=== PATIENT | female | born 1985 | race African-American/Black ===

== ENCOUNTER 2019-10-21 04:52 | Inpatient (IN) | payer MEDICARE, MEDICAID ==
[~2019-10-21] VITALS: Ht 175.3 cm; Wt 87.1 kg
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
[2019-10-21 05:22] LABS: BASOPHILS % (AUTO) 0.5 % (0.0-2.0); EOSINOPHILS % (AUTO) 4.2 % (0.0-6.0); HEMATOCRIT 37 % (33-45); HEMOGLOBIN 12.6 g/dL (11.5-14.8); LYMPHOCYTES # (AUTO) 1.8 /CMM (0.8-4.8); LYMPHOCYTES % (AUTO) 24.3 % (20.0-44.0); MEAN CORPUSCULAR HGB CONC 34 g/dl (31.0-36.0); MEAN CORPUSCULAR VOLUME 96 fL (82-100); MONOCYTES # (AUTO) 0.4 /CMM (0.1-1.30); MONOCYTES % (AUTO) 5.9 % (2.0-12.0); NEUTROPHILS # (AUTO) 4.7 /CMM (1.8-8.9); NEUTROPHILS % (AUTO) 65.1 % (43.0-81.0); PLATELET COUNT (AUTO) 430 /CMM (150-450); RED BLOOD CELL COUNT(AUTO) 3.92 MIL/uL (4.0-5.2); WHITE BLOOD COUNT (AUTO) 7.2 K/uL (4.3-11.0)
[2019-10-21] MEDS ORDERED: OLANZAPINE 10 MG VIAL IM ONE ×2 (05:26→05:30)
[2019-10-21 05:29] LABS: CALCIUM, SERUM 8.8 mg/dL (8.5-10.1); CARBON DIOXIDE 25 mmol/L (21-32); CHLORIDE 106 mmol/L (98-107); CREATININE 0.8 mg/dL (0.6-1.3); GLUCOSE 94 mg/dL (74-106); POTASSIUM 3.5 mmol/L (3.5-5.1); SODIUM SERUM 141 mmol/L (136-145); UREA NITROGEN, BLOOD 10 mg/dL (7-18)
[2019-10-21 05:35] LABS: ALANINE AMINOTRANSFERASE 15 U/L (12-78); ALCOHOL, BLOOD < 3 mg/dL (0-0); ALKALINE PHOSPHATASE 101 U/L (46-116); ASPARTATE AMINOTRANSFERASE 21 U/L (15-37); BILIRUBIN,DIRECT 0.1 mg/dL (0.0-0.2); BILIRUBIN,TOTAL 0.2 mg/dL (0.2-1.0); TOTAL PROTEIN, SERUM 7.3 g/dL (6.4-8.2)
[2019-10-21 05:39] LABS: ACETAMINOPHEN 0 ug/ml (10-30); SALICYLATE 1.5 mg/dL (2.8-20.0)
--- NOTE | 2019-10-21 07:33 | NUR ---
REPORT GIVEN TO SHAZIA OLIVARES FOR JOEL.
--- NOTE | 2019-10-21 08:15 | NUR ---
PATIENT RESTING, GAVE A URINE SAMPLE, SENT TO LAB.
[2019-10-21 08:25] LABS: APPEARANCE,URINE Clear (CLEAR); BILIRUBIN,URINE Negative (NEGATIVE); BLOOD, URINE Large Ery/uL (NEGATIVE); COLOR,URINE Yellow (YELLOW); KETONES,URINE Negative (NEGATIVE); LEUKOCYTE ESTERASE ,URINE Negative (NEGATIVE); NITRITE, URINE Negative (NEGATIVE); PROTEIN,URINE 100 mg/dl (NEGATIVE); UGLUCOSE Negative (NEGATIVE); UROBILINOGEN,URINE 0.2 EU/dL (0.2)
[2019-10-21 08:27] LABS: BACTERIA,URINE Few /HPF (None Seen); SQUAMOUS EPITHELIAL CELL,UR Few /HPF (None Seen)
--- NOTE | 2019-10-21 08:47 | NUR ---
CALLED AND LEFT A MESSAGE FOR [facility] (CRISIS TEAM) REGARDING PSYCH EVAL.
--- NOTE | 2019-10-21 09:08 | NUR ---
naz dave called. eta 1 hour.
--- NOTE | 2019-10-21 09:58 | NUR ---
Patient is resting comfortably in bed with eyes closed. Easily aroused. VSS
--- NOTE | 2019-10-21 12:00 | NUR ---
[facility] [employer]ILY [employer] AT BEDSIDE FOR EVAL.
--- NOTE | 2019-10-21 12:30 | NUR ---
ordered food tray, patient tolerated meal.
--- NOTE | 2019-10-21 14:18 | NUR ---
[facility] FAXED PAPER WORK FROM 4 DIFFERENT FACILITIES, WAITING FOR INTAKE CALL BACK.
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
--- NOTE | 2019-10-21 17:09 | NUR ---
ordered food tray, pt refused food.
--- NOTE | 2019-10-21 17:16 | NUR ---
SPOKE WITH PETRA FROM [facility]TA[facility], PT WILL HAVE A BED AVAILABLE TOMORROW MORNING AT [facility].
--- NOTE | 2019-10-21 18:00 | NUR ---
Patient is resting comfortably in bed with eyes closed. Easily aroused. VSS
[2019-10-21] MEDS ORDERED: clonazePAM 1 MG TABLET ONE (19:21)
--- NOTE | 2019-10-21 19:24 | NUR ---
endorsed to ronal dave
[2019-10-21] MEDS ORDERED: clonazePAM 1 MG TABLET PO ONE (19:30)
[2019-10-21] MEDS ORDERED: ARIPIPRAZOLE 5 MG TABLET PO ONE (19:30)
[2019-10-21] MEDS ORDERED: QUETIAPINE FUMARATE 100 MG TABLET PO ONE (19:30)
[2019-10-21] MEDS ORDERED: QUETIAPINE FUMARATE 100 MG TABLET ONE (19:35)
[2019-10-21] MEDS ORDERED: ARIPIPRAZOLE 5 MG TABLET ONE (19:36)
--- NOTE | 2019-10-21 19:36 | NUR ---
PT RESTING IN BED. -ACUTE DISTRESS NOTED. MEDICATED PER MD ORDER.SITTER AT BEDSIDE.
--- NOTE | 2019-10-21 21:00 | NUR ---
PT AMBULATORY TO RESTROOM WITH SITTER. -ACUTE DISTRESS NOTED. VSS
--- NOTE | 2019-10-21 21:48 | NUR ---
Patient is resting comfortably in bed with eyes closed. Easily aroused. VSS. -ACUTE DISTRESS NOTED.
--- NOTE | 2019-10-22 01:30 | NUR ---
Patient is resting comfortably in bed with eyes closed. Easily aroused. VSS. -SOB AOX4.
--- NOTE | 2019-10-22 02:10 | NUR ---
PATIENT AMBULATORY TO RESTROOM WITH SERVICE CREW LEADER. VSS.
--- NOTE | 2019-10-22 03:37 | NUR ---
Patient is resting comfortably in bed with eyes closed. Easily aroused. VSS. SITTER AT BEDSIDE. OFFERED FOOD, DECLINED AT THIS TIME.
[2019-10-22] MEDS ORDERED: clonazePAM 1 MG TABLET ONE (05:48)
[2019-10-22] MEDS ORDERED: QUETIAPINE FUMARATE 100 MG TABLET ONE (05:48)
--- NOTE | 2019-10-22 05:56 | NUR ---
Patient is resting comfortably in bed with eyes closed. Easily aroused. VSS
[2019-10-22] MEDS ORDERED: QUETIAPINE FUMARATE 100 MG TABLET PO SCH (06:00)
[2019-10-22] MEDS ORDERED: clonazePAM 1 MG TABLET PO ONE (06:00)
[2019-10-22] MEDS ORDERED: QUET300T2 PO (10:47)
[2019-10-22] MEDS ORDERED: MAGN400O6 PO (10:47)
[2019-10-22] MEDS ORDERED: ARIP20TA4 PO (10:47)
[2019-10-22] MEDS ORDERED: CLON1TAB PO (10:47)
[2019-10-22] MEDS ORDERED: ACET-868 PO (10:47)
[2019-10-22] MEDS ORDERED: GABA-534 PO (10:47)
[2019-10-22] MEDS ORDERED: BISA10SU11 RC (10:47)
[2019-10-22] MEDS ORDERED: ACET-2605 PO (10:47)
[2019-10-22] MEDS ORDERED: ALBU18HF2 IH (10:47)
[2019-10-22] MEDS ORDERED: NA P133E RC (10:47)
--- NOTE | 2019-10-22 10:53 | NUR ---
CALLED NURSING SUP FOR PSYCH BED. WILL NEED TO WAIT FOR SITTER.
[2019-10-22] MEDS ORDERED: ARIPIPRAZOLE 5 MG TABLET PO ONE (11:00)
--- NOTE | 2019-10-22 11:19 | NUR ---
Crisis Team Note Patient still has no disposition and so is being admitted to [facility] as psychiatric overflow. Dr Magaña was notified by this global technical writer and already saw the patient in ED yesterday. Pt. was started on her medication of Seroquel and Abilify. Central intake are still working on placement and their CODING COMPLIANCE SPECIALIST was notified of delay in disposition ). If placement is found, patient will be transferred to an accepting facility. Will monitor.
[2019-10-22] MEDS ORDERED: ALBUTEROL FS 2.5 MG/3 ML VIAL.NEB NEB PRN (11:30)
--- NOTE | 2019-10-22 19:46 | NUR ---
REPORT GIVEN TO ELENA PALAFOX.
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
[2019-10-22] MEDS ORDERED: MAG HYDROX/AL HYDROX/SIMETH 30 ML UDC PO PRN (22:00)
[2019-10-22] MEDS ORDERED: MAGNESIUM HYDROXIDE 30 ML UDC PO PRN (22:00)
[2019-10-22] MEDS ORDERED: ACETAMINOPHEN 325 MG TABLET PO PRN (22:00)
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
[2019-10-22] MEDS: TEMAZEPAM 15 MG CAPSULE PO PRN (22:53)
--- NOTE | 2019-10-23 06:45 | NUR ---
GPS RN CLOSING NOTES PATIENT IN BED, ALERT AND ORIENTED X 2-3, STILL VERBALLY AGGRESSIVE/ABUSIVE AND PARANOID. BREATHING REGULAR AND UNLABORED ON ROOM AIR. NO IV ACCESS. NO REPORTS OF SUICIDAL OR HOMICIDAL IDEATION; NO COMPLAINTS OF PAIN/DISCOMFORT THE WHOLE SHIFT. CLOSELY MONITORED EVERY 15MINS. BED LOW AND LOCKED ON SEMI FOWLERS POSITION. CALL LIGHT IN REACH. WILL ENDORSE TO MORNING SHIFT FOR JOEL.
[2019-10-23] MEDS: clonazePAM 0.5 MG TABLET PO PRN ×2 (07:58→18:55)
--- NOTE | 2019-10-23 07:58 | NUR ---
RN NOTES RECEIVED PATIENT IN THE BED AWAKE A/O X3, NO ACUTE RESPIRATORY DISTRESS, BREATHING UNLABORED. PATIENT ANXIOUS ASKING MEDICATION FOR , REFUSED TO ANSWER QUESTIONS, PREFERRED TO REST, V/S STABLE. PATIENT AMBULATORY SELF CARE, NO IV ACCESS. 1:1 SITTER NEXT TO THE BED. SAFETY PRECAUTION MAINTAINED ALL THE TIME.
[2019-10-23 08:00] VITALS: BP 117/73
[2019-10-23] MEDS ORDERED: ARIPIPRAZOLE 5 MG TABLET PO SCH (09:00)
[2019-10-23] MEDS: QUETIAPINE FUMARATE 100 MG TABLET PO SCH ×4 (09:00→17:40)
[2019-10-23] MEDS ORDERED: FEE EMEERGENCY 1 MIN EA MC ONE (15:35)
[2019-10-23] MEDS ORDERED: ETOMIDATE 2 MG/ML VIAL IV ONE (15:35)
[2019-10-23] MEDS ORDERED: SUCCINYLCHOLINE CHLORIDE 20 MG/ML VIAL IV ONE (15:35)
[2019-10-23 16:00] VITALS: BP 111/69
[2019-10-23] MEDS: ARIPIPRAZOLE 5 MG TABLET PO SCH (17:35)
--- NOTE | 2019-10-23 17:41 | NUR ---
rn notes patient in the bed stable refused pain, no si/hi/avh at this time. Patient self care, ambulatory. 1:1 sitter next to the bed for safety. continued monitoring. endorsed oncoming nurse follow plan of care.
--- NOTE | 2019-10-23 18:55 | NUR ---
rn notes administered Klonopin 0.5 mg/po prn for anxiety per patient request. v/s taken bp 111/69,p-88. continued monitoring.
--- NOTE | 2019-10-23 19:53 | NUR ---
GPS RN NOTES RECEIVED PATIENT AWAKE IN BED WITH NO DISTRESS NOTED. CALL LIGHT WITHIN REACH. SITTER AT BEDSIDE. PATIENT IRRITABLE, ANGRY, AND SHOUTING AT STAFF D/T ROOM BEING TOO LOUD, ABLE TO REDIRECT AT THIS TIME. NO C/O PAIN OR DISCOMFORT. BED IN LOW LOCK SETTING. ROOM FREE OF CLUTTER AND BELONGINGS KEPT NEAR BEDSIDE. WILL CONTINUE TO MONITOR.
--- NOTE | 2019-10-24 00:37 | NUR ---
CONTINUATION OF CARE GIVEN TO IRWIN PALAFOX. PATIENT ASLEEP IN STABLE CONDITION
--- NOTE | 2019-10-24 06:34 | NUR ---
GPS RN NOTES PT REFUSED MORNING LAB DRAW. WILL CONTINUE TO MONITOR.
--- NOTE | 2019-10-24 06:48 | NUR ---
GPS RN NOTES PATIENT IN BED ASLEEP BUT EASILY AWOKEN VERBALLY OR BY TOUCH. PT WITH NO DISTRESS NOTED. CALL LIGHT WITHIN REACH. SITTER AT BEDSIDE. PATIENT CALM AT THIS TIME. NO C/O PAIN OR DISCOMFORT. BED IN LOWEST LOCKED SETTING. ROOM FREE OF CLUTTER AND BELONGINGS KEPT NEAR BEDSIDE. WILL ENDORSE TO ONCOMING NURSE FOR JOLE.
--- NOTE | 2019-10-24 07:15 | NUR ---
RN OPENING NOTE PATIENT IN BED SLEEPING COMFORTABLY. PATIENT IN NO ACUTE DISTRESS. NO SOB NOTED. PATIENT BREATHING IS EVEN AND UNLABORED. NO FACIAL GRIMACING NOTED. PATIENT WITH SITTER AT THE BEDSIDE. PATIENT BED IS LOCKED AND IN LOWEST POSITION. CALL LIGHT WITHIN REACH. WILL CONTINUE TO MONITOR.
[2019-10-24] MEDS: QUETIAPINE FUMARATE 100 MG TABLET PO SCH ×3 (08:56→16:09)
[2019-10-24] MEDS: ARIPIPRAZOLE 5 MG TABLET PO SCH (08:56)
--- NOTE | 2019-10-24 09:00 | NUR ---
RN NOTE PATIENT REFUSED LAB DRAW 2X. EDUCATED RISK VS BENEFITS AND IMPORTANCE. PATIENT GOT IRRITABLE AND CONTINUED TO REFUSE. RO GARRISON MADE AWARE.
[2019-10-24] MEDS: clonazePAM 0.5 MG TABLET PO PRN ×2 (11:22→20:45)
--- NOTE | 2019-10-24 11:25 | NUR ---
RN NOTES ADMINISTERED KLONOPIN 0.5MG PRN FOR ANXIETY PER PATIENT REQUEST. PATIENT BP 118/64 AND HR 79. WILL CONTINUE TO MONITOR.
[2019-10-24 11:30] VITALS: BP 118/64
--- NOTE | 2019-10-24 12:15 | NUR ---
RN NOTES PATIENT REFUSED 1300 SEROQUEL. EDUCATED PATIENT RISKS VS BENEFITS AND IMPORTANCE OF MEDICATION 3X. PATIENT CONTINUED TO REFUSE AND BECAME IRRITABLE. PATIENT STATED " I DONT WANT TO TAKE THIS RIGHT NOW, DO NOT GIVE ME THE MEDICATION."
--- NOTE | 2019-10-24 14:11 | NUR ---
RN NOTE PATIENT REFUSED LAB DRAW FOR 3RD TIME. EDUCATED PATIENT OF IMPORTANCE, RISK VS BENEFITS AND PATIENT CONTINUED TO REFUSE. MD AWARE.
--- NOTE | 2019-10-24 16:30 | NUR ---
RN NOTE PATIENT REFUSING TO TAKE EVENING VITAL SIGNS. EXPLAINED IMPORTANCE AND RISKS VS BENEFITS. PATIENT CONTINUED TO REFUSE. PATIENT IN NO ACUTE DISTRESS. NO SOB NOTED. WILL CONTINUE TO MONITOR.
--- NOTE | 2019-10-24 18:23 | NUR ---
RN CLOSING NOTE PATIENT IN BED RESTING COMFORTABLY. PATIENT IN NO ACUTE DISTRESS. NO SOB NOTED. PATIENT BREATHING IS EVEN AND UNLABORED. PATIENT PRIOR LAUGHING AND HAS FLIGHT OF IDEAS, OFTEN NEEDS REDIRECTION. PATIENT HAS A SITTER AT THE BEDSIDE. NEEDS AND CONCERNS ADDRESSED. PATIENT BED IS LOCKED AND IN LOWEST POSITION. CALL LIGHT WITHIN REACH. WILL ENDORSE CARE TO PM SHIFT FOR JOEL.
--- NOTE | 2019-10-24 19:45 | NUR ---
MS RN NOTES RECEIVED PATIENT ASLEEP IN BED WITH NO DISTRESS NOTED. CALL LIGHT WITHIN REACH. SITTER AT BEDSIDE. BED IN LOW LOCK SETTING. ROOM FREE OF CLUTTER AND BELONGINGS KEPT NEAR BEDSIDE. WILL CONTINUE TO MONITOR.
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
--- NOTE | 2019-10-24 22:00 | NUR ---
PATIENT AWAKE AND WALKING AROUND UNIT. PATIENT IRRITABLE, ANGRY, AND CLAIMING STAFF ARE RUDE AND STATING SHE DOESN'T TRUST ANYONE HERE. ATTEMPTED TO REDIRECT PATIENT BUT INEFFECTIVE, PATIENT BEGAN CURSING AT STAFF AND CONTINUES TO PACE IN/OUT OF ROOM AND AROUND STATION. OFFERED PRN KLONOPIN BUT REFUSED STATING SHE NEEDS TO SEE MEDICATION OPENED IN FRONT OF HER. REMINDED PATIENT MEDICATION WAS OPENED IN FRONT OF HER. PATIENT THEN STATED SHE WANTED A MEDICATION NOT TOUCHED BY STAFF. CONTINUES TO REFUSE PRN KLONOPIN DESPITE EXPLANATION OF RISKS AND BENEFITS. WILL CONTINUE TO REDIRECT NEEDED. CLOSE MONITORING RENDERED. SAFETY MEASURES MAINTAINED AT ALL TIMES
--- NOTE | 2019-10-24 23:00 | NUR ---
PATIENT AWAKE IN BED. CONTINUES TO YELL AT STAFF WHO ARE ASSISTING THE OTHER PATIENT IN NEXT BED, STATING STAFF ARE RUDE AND PURPOSELY TRYING TO "PISS HER OFF." PATIENT ALSO CONTINUES TO REQUEST PRN KLONOPIN THEN CHANGES HER MIND STATING SHE NEEDS ANOTHER MEDICATION OPENED IN FRONT OF HER THEN SHE WILL TAKE IT. REMINDED PATIENT THAT THE PRIOR MEDICATION WAS ALREADY OPENED IN FRONT OF HER BUT SHE CONTINUES TO CHANGE HER MIND. PATIENT THEN STATED SHE DOESN'T WANT IT ANYMORE ANYWAY. WILL CONTINUE TO REDIRECT NEED. SAFETY MEASURES MAINTAINED. SITTER AT BEDSIDE.
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
--- NOTE | 2019-10-25 05:52 | NUR ---
KLONOPIN 0.5MG WASTED AND WITNESSED WITH ANOTHER RN
--- NOTE | 2019-10-25 06:16 | NUR ---
MS RN NOTES PATIENT ASLEEP IN BED WITH NO DISTRESS NOTED. CALL LIGHT WITHIN REACH. SITTER AT BEDSIDE. BED IN LOW LOCK SETTING ROOM FREE OF CLUTTER AND BELONGINGS KEPT NEAR BEDSIDE. WILL CONTINUE TO MONITOR.
--- NOTE | 2019-10-25 07:40 | NUR ---
RN OPENING NOTES Patient remains on room air, no sob noted, and is asleep at this time. No s/s of pain at this time. Bed at the lowest setting, call light within reach, side rails up x2.
[2019-10-25] MEDS: ARIPIPRAZOLE 5 MG TABLET PO SCH (08:03)
[2019-10-25] MEDS: QUETIAPINE FUMARATE 100 MG TABLET PO SCH ×3 (08:03→17:31)
--- NOTE | 2019-10-25 14:11 | NUR ---
Preliminary discharge plans: Pt currently resides at [facility], a senior care facility, located at [address] [place] [id number]; [phone].CESAR spoke with Joyce in admissions, who informed CESAR that they are working on rerouting pt to [facility] [[address] [place] [id number]; [phone]], and states he will confirm placement within the next 24 hours. CESAR will work with the pt and MD regarding appropriate discharge planning. CESAR will form a safe and proper discharge plan.
--- NOTE | 2019-10-25 14:27 | NUR ---
Coordination of care: CESAR faxed clinicals to Joyce, habitat management coordinator at [facility] at fax number [phone].
--- NOTE | 2019-10-25 18:23 | NUR ---
RN CLOSING NOTES Patient remains on room air, no sob noted, a/o x4, remains on 5250 and has no new labs. Patient remains with 1:1 sitter at all times. Patient ate well and drank medications except one dose of seroquel in the afternoon. Bed at the lowest setting, call light within reach, side rails up x2. Will give report to NOC RN for JOEL bedside.
--- NOTE | 2019-10-25 19:45 | NUR ---
GPS RN OPENING NOTES RECEIVED PATIENT FROM MORNING SHIFT ALERT AND ORIENTED X 2-3, CONFUSED, VERBALLY AGGRESSIVE AND PARANOID. BREATHING REGULAR AND UNLABORED ON ROOM AIR. NO IV ACCESS. REFUSED BODY ASSESSMENTS, RISK AND BENEFITS EXPLAINED. PATIENT OBSERVED TO BE HYPERVERBAL, CLEAN AND WELL-GROOMED. DENIES ANY SUICIDAL AND HOMICIDAL IDEATION AT THIS TIME. NO COMPLAINTS OF PAIN/DISCOMFORT REPORTED OF NOW. BED LOW AND LOCKED ON SEMI FOWLERS POSITION. ON 1:1 SITTER. WILL CONTINUE TO MONITOR EVERY 15MINS TO MAINTAIN SAFETY.
[2019-10-26 08:00] VITALS: BP 104/71
--- NOTE | 2019-10-26 08:00 | NUR ---
gps ov ignition specialist: initial assessment received pt in bed awake, a/ox4. roberson and answer sarcastic when conversed from time to time. no c/o pain. denies si/hi at this time. sitter at bedside. instructed to call for assistance. will monitor.
[2019-10-26] MEDS: QUETIAPINE FUMARATE 100 MG TABLET PO SCH ×3 (08:52→17:07)
[2019-10-26] MEDS: ARIPIPRAZOLE 5 MG TABLET PO SCH (08:53)
[2019-10-26 16:00] VITALS: BP 107/66
--- NOTE | 2019-10-26 17:10 | NUR ---
gps ov loan officer: notes dinner served. sitter remains at bedside. needs attended. no distress noted.
--- NOTE | 2019-10-26 19:15 | NUR ---
m/s federal mediator: notes bedside report given to robert (rn) for continuity of care.
--- NOTE | 2019-10-26 19:16 | NUR ---
GPS RN OPENING NOTES RECEIVED PATIENT IN BED, ALERT, ORIENTED X 3. BREATHING EVEN AND UNLABORED. NOT IN ANY DISTRESS. PATIENT IS NOTED TO BE LABILE AND SELECTIVE WITH CARES. NO COMPLAINTS AT THIS TIME. SAFETY MEASURES IN PLACE, CALL LIGHT WITHIN REACH, BED IN LOW, LOCKED POSITION, 1:1 SITTER AT BEDSIDE. WILL CONTINUE TO MONITOR ACCORDINGLY
[2019-10-26 20:00] VITALS: BP_SYST 100; BP_SYST 105; BP_DIAS 58; BP_DIAS 60
[2019-10-27] MEDS: TEMAZEPAM 15 MG CAPSULE PO PRN (00:45)
--- NOTE | 2019-10-27 00:45 | NUR ---
RN NOTES PATIENT REQUESTING FOR SLEEPING TABLET. RESTORIL 15MG PO GIVEN ORDERED.
--- NOTE | 2019-10-27 06:48 | NUR ---
GPS RN CLOSING NOTES PATIENT RESTING IN BED, REMAINS ON ROOM AIR. NO SOB NOTED. REMAINS ON 5250. PATIENT REMAINS WITH 1:1 SITTER AT ALL TIME. PATIENT SLEPT WELL. SAFETY MEASURES IN PLACE, CALL LIGHT WITHIN REACH, BED IN LOW, LOCKED POSITION, WILL ENDORSE JOEL TO ONCOMING RN
[2019-10-27] MEDS: ARIPIPRAZOLE 5 MG TABLET PO SCH (08:19)
[2019-10-27] MEDS: QUETIAPINE FUMARATE 100 MG TABLET PO SCH (08:19)
--- NOTE | 2019-10-27 08:30 | NUR ---
Ileana RN opening notes Received patient in bed. 34 year old female awake, alert and oriented x3. 1:1 sitter by bed side at the time the patient was received. No complaints of pain or discomfort. Respirations are even and unlabored. Breath sounds clear. Administered all due meds this AM. Tapan has no IVs or IV site. Explained all medications to be administered to the patient. Pt was guarded but was re directable, calm and cooperative with meds. Pt tolerated medication administration well with no ASE noted. Pt ate all her breakfast.
--- NOTE | 2019-10-27 11:36 | NUR ---
GPS/RN - Discharge Note Dot Garcia is a 34 year old female, discharged to [facility] in stable condition. Reviewed discharge instructions with Fox RN at ([phone]) and she verbalized full understanding. Patient compliant with medications, cooperative with treatment plans. Patient is alert and oriented x 3, ambulatory with steady gait, denies pain, not in any form of distress, afebrile. Patient denies suicidal ideation or homicidal ideation, no c/o visual and auditory hallucinations at this time. Patient refused skin pictures to be taken, no skin breakdown noted. Behavior improved, psychiatric treatment plans met, medical treatment plans deferred for continual monitoring. Medications reconciled with Dr. Magaña and Dr. Jimenez. Patient sign her discharge paperwork. Returned all personal belongings to patient and she deny any missing items. Patient left the unit at 11:20 via ambulance. No lathe operator contact lens on file to notify of discharge.
== END 2019-10-27 11:20 | DRG 885 ==
LOC: ER 04:55 → GPSOV 10-22 19:37
PROVIDERS: ADMIT Psychiatry & Neurology Psychiatry; ATTEND Nurse Practitioner Acute Care
DX: F20.0 Paranoid schizophrenia (principal); E66.9 Obesity, unspecified; Z68.28 Body mass index [BMI] 28.0-28.9, adult; F17.210 Nicotine dependence, cigarettes, uncomplicated; J45.909 Unspecified asthma, uncomplicated
CPT/HCPCS: 36415; 80048-TC; 80076-TC; 80305; 81000-TC; 84703-TC; 85025-TC; 87081-TC; G0480; J0330; J3490